=== PATIENT | female | born 1940 | race Two or more races ===

== ENCOUNTER 2017-09-21 10:30 | Inpatient (IN) | payer OTHER ==
[~2017-09-21] VITALS: Ht 165.1 cm; Wt 71.7 kg
[2017-09-22] MEDS ORDERED: METOPROLOL SUCC50 MG PO (12:04)
[2017-09-22] MEDS ORDERED: XARELTO20 MG PO (12:04)
[2017-09-22] MEDS ORDERED: RANITIDINE HCL300 M1 PO (12:04)
[2017-09-22] MEDS ORDERED: LIPITOR20 MG PO (12:05)
[2017-09-22] MEDS ORDERED: LOSARTAN POTASS50 MG PO (12:05)
[2017-09-22] MEDS ORDERED: ZANTAC150 MG PO (12:05)
[2017-09-30] MEDS ORDERED: LEVSIN/SL0.125 MG PO (07:29)
[2017-09-30] MEDS ORDERED: OXYC1TAB9 PO (07:29)
[2017-09-30] MEDS ORDERED: CIPRO500 MG PO (07:29)
[2017-09-30] MEDS ORDERED: SURFAK240 M1 PO (07:33)
== END 2017-09-30 09:54 | DRG 743 ==
LOC: OB/GYN 09-28 06:51 → O/R 09-28 06:51 → EDSEX 09-28 06:51 → SURG 09-28 07:00 → OB/GYN 09-28 16:00
PROVIDERS: Obstetrics & Gynecology Gynecology
PROC: 0USG0ZZ Reposition Vagina, Open Approach (ICD-10-PCS; 2017-09-28)
PROC: 0UT97ZZ Resection of Uterus, Via Natural or Artificial Opening (ICD-10-PCS; principal; 2017-09-28 07:00)
PROC: 0JQC0ZZ Repair Pelvic Region Subcutaneous Tissue and Fascia, Open Approach (ICD-10-PCS; 2017-09-28 07:00)
DX: N81.3 Complete uterovaginal prolapse (principal); I10 Essential (primary) hypertension